=== PATIENT | male | born 2000 | race African-American/Black ===

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

== ENCOUNTER 2021-08-10 14:58 | Emergency (ER) | payer MEDICAID ==
[~2021-08-10] VITALS: Ht 182.9 cm; Wt 104.3 kg
[2021-08-10 15:25] VITALS: BP 140/97
[2021-08-10] MEDS ORDERED: TRIA0.1O TOP (16:30)
[2021-08-10] MEDS ORDERED: IBUP800T27 PO (16:30)
== END 2021-08-10 16:36 | disposition home or self-care (01) ==
LOC: ER 14:58
DX: S39.012A Strain of muscle, fascia and tendon of lower back, initial encounter (principal); N48.1 Balanitis; F17.210 Nicotine dependence, cigarettes, uncomplicated; Z79.1 Long term (current) use of non-steroidal anti-inflammatories (NSAID); Z79.899 Other long term (current) drug therapy; W10.8XXA Fall (on) (from) other stairs and steps, initial encounter; Y93.89 Activity, other specified; Y92.89 Other specified places as the place of occurrence of the external cause; Y99.8 Other external cause status
CPT/HCPCS: 72100

== ENCOUNTER 2022-04-04 00:58 | Emergency (ER) | payer MEDICAID ==
[~2022-04-04 00:58] MED LIST: IBUP800T27 PO; TRIA0.1O TOP
[2022-04-04 02:04] LABS: Basophils # (auto) 0.1 10 ^3/uL (0-0.2); Basophils % (auto) 0.6 % (0.0-2.0); Eosinophils # (auto) 0.1 10 ^3/uL (0-0.8); Eosinophils % (auto) 1.1 % (0.0-7.0); Hematocrit 44.6 % (41.0-53.0); Hemoglobin 15.2 g/dL (13.5-17.5); Lymphocytes # (auto) 2.8 10 ^3/uL (0.4-5.4); Lymphocytes % (auto) 27.5 % (10.0-50.0); Mean Corpuscular Hemoglobin 28.3 pg (28.0-32.0); Mean Corpuscular Hgb Conc. 34.1 g/dL (32.0-36.0); Mean Corpuscular Volume 82.9 fL (80.0-100.0); Monocytes # (auto) 0.5 10 ^3/uL (0-1.3); Monocytes % (auto) 5.3 % (0.0-12.0); Neutrophils # (auto) 6.7 10 ^3/uL (1.6-8.6); Neutrophils % (auto) 65.5 % (37.0-80.0); Red Blood Cells 5.39 10^6/uL (4.5-5.90); Red Cell Distribution Width 14.4 % (11.8-14.3); White Blood Cell 10.2 10^3/uL (4.4-10.8)
[2022-04-04 02:23] LABS: Albumin 3.9 g/dL (3.4-5.0); Chloride 109 mmol/L (98-107); Potassium 4.2 mmol/L (3.5-5.1); Sodium 139 mmol/L (136-145)
[2022-04-04 02:27] LABS: Acetaminophen < 2.0 ug/mL (10-30); Alanine Aminotransferase 44 U/L (16-61); Anion Gap 5 (5-15); Aspartate Aminotransferase 13 U/L (15-37); BUN/Creatinine Ratio 9.7; Blood Alcohol < 3.0 mg/dL (0-5); Blood Urea Nitrogen 10 mg/dL (7-18); Carbon Dioxide 25 mmol/L (21-32); GFR African American 118 mL/min; GFR Non-African American 98 mL/min; Glucose 89 mg/dL (74-106); Salicylate < 1.7 mg/dL (2.8-20.0)
[2022-04-04 02:29] LABS: Alkaline Phosphatase 127 U/L (45-117); Bilirubin, Total 0.6 mg/dL (0.2-1.0); Total Protein 8.2 g/dL (6.4-8.2)
[2022-04-04 07:50] VITALS: BP 137/88
== END 2022-04-04 08:45 | disposition left against medical advice (07) ==
LOC: ER 00:58
DX: T39.1X2A Poisoning by 4-Aminophenol derivatives, intentional self-harm, initial encounter (principal); F17.210 Nicotine dependence, cigarettes, uncomplicated; Y92.89 Other specified places as the place of occurrence of the external cause
CPT/HCPCS: 36415; 80053; 80320; 80329; 84484; 85025; 93005

== ENCOUNTER 2022-07-19 16:00 | Emergency (ER) | payer MEDICAID ==
[~2022-07-19] VITALS: Ht 182.9 cm; Wt 113.6 kg
[2022-07-19 18:00] LABS: Urine Bacteria FEW /hpf (None Seen); Urine Blood Negative /uL (Negative); Urine Mucus FEW (None Seen); Urine WBC 69 /hpf (0 - 3)
[2022-07-19] MEDS ORDERED: DOXY-340 PO (19:13)
[2022-07-19] MEDS ORDERED: cefTRIAXone SOD 500 MG VL IM ONE (19:15)
[2022-07-19 19:24] VITALS: BP 120/80
== END 2022-07-19 19:14 | disposition home or self-care (01) ==
LOC: ER 16:00
DX: R36.9 Urethral discharge, unspecified (principal); N39.0 Urinary tract infection, site not specified; F12.90 Cannabis use, unspecified, uncomplicated; Z79.899 Other long term (current) drug therapy
CPT/HCPCS: 81001; 96372; 99283; J0696

== ENCOUNTER 2022-12-10 10:01 | Emergency (ER) | payer MEDICAID ==
[~2022-12-10] VITALS: Ht 182.9 cm; Wt 129.5 kg
[~2022-12-10 10:01] MED LIST changes: +DOXY1CAP57 PO; +IBUP-1456 PO; -IBUP800T27 PO
[2022-12-10 10:11] VITALS: BP 124/79
[2022-12-10] MEDS ORDERED: ACETAMINOPHEN 500 MG TAB PO ONE (10:45)
[2022-12-10] MEDS ORDERED: KETOROLAC TROMETH 30 MG/ML 1ML VIAL IV ONE (10:45)
== END 2022-12-10 11:36 | disposition home or self-care (01) ==
LOC: ER 10:01
DX: M25.531 Pain in right wrist (principal); F15.90 Other stimulant use, unspecified, uncomplicated; Z79.899 Other long term (current) drug therapy; Z79.1 Long term (current) use of non-steroidal anti-inflammatories (NSAID); X50.3XXA Overexertion from repetitive movements, initial encounter; Y93.89 Activity, other specified; Y92.89 Other specified places as the place of occurrence of the external cause; Y99.8 Other external cause status
CPT/HCPCS: 29125; 73110; 96374; 99283; J1885

== ENCOUNTER 2023-08-05 10:03 | Emergency (ER) | payer MEDICAID ==
[~2023-08-05] VITALS: Ht 180.3 cm; Wt 137.8 kg
[2023-08-05 10:07] VITALS: BP 140/95; PULSE 81; RESP 20; TEMP 97.2; O2SAT 98
[2023-08-05 11:00] LABS: Urine Bacteria NONE SEEN /hpf (None Seen); Urine Blood Negative /uL (Negative); Urine Clarity Clear (Clear); Urine Color Colorless (Yellow); Urine Protein, UAD Negative (Negative); Urine Specific Gravity 1.016 (1.001-1.035); Urine Urobilinogen Normal (Negative); Urine WBC 8 /hpf (0 - 3); Urine pH 5.5 (5.0-8.0)
[2023-08-05] MEDS: cefTRIAXone SOD 1,000 MG VL IM ONE (12:02)
[2023-08-05] MEDS ORDERED: AZITHROMYCIN 250 MG TAB PO ONE (12:15)
[2023-08-06 19:06] LABS: Chlamydia Trachomatis, NAA Positive (Negative); Neisseria gonorrhoeae, NAA Negative (Negative)
== END 2023-08-05 12:22 | disposition home or self-care (01) ==
LOC: ER 10:03
DX: R36.9 Urethral discharge, unspecified (principal); N39.0 Urinary tract infection, site not specified; F12.10 Cannabis abuse, uncomplicated
CPT/HCPCS: 81001; 87491; 87591; 96372; 99283; J0696